=== PATIENT | male | born 1965 | race Caucasian/White ===

== ENCOUNTER 2020-11-24 19:01 | Emergency (ER) | payer BC ==
[2020-11-24] MEDS ORDERED: NA CHLORIDE 0.9% 1,000 ML ONE (22:13)
--- NOTE | 2020-11-24 22:21 | RAD REPORT ---
EXAM DESCRIPTION: RAD - Abdomen 1 View (KUB) - 11/24/2020 10:08 pm CLINICAL HISTORY: Abdomen pain. FINDINGS: The bowel gas pattern is unremarkable. 12 millimeter calcification along the right abdomen the level of L2-3. It may lie within the right ki dney.
[2020-11-24 22:24] LABS: Urine Blood 3+ (Negative); Urine Glucose Negative (Negative); Urine Protein Trace (Negative); Urine Specific Gravity 1.025 (1.005-1.030); Urine pH 5.5 (5.0-7.0)
[2020-11-24 22:36] LABS: Absolute Lymphocytes (CBC) 1.3 K/uL (0.7-4.9); Basophils % 0.3 % (0-1.3); Hematocrit 40.1 % (39.6-49.0); Lymphocytes % 10.7 % (15.3-44.8); MPV 8.1 fL (7.6-11.3); RBC Red Blood Cell Count 4.55 M/uL (4.33-5.43)
[2020-11-24 22:39] LABS: Protime INR 1.25
[2020-11-24 22:41] LABS: Bilirubin Direct 0.1 mg/dL (0-0.2); Bilirubin Total 0.5 mg/dL (0.2-1.0); Potassium 3.9 mmol/L (3.5-5.1); Protein, Total 7.4 g/dL (6.4-8.2)
[2020-11-24 23:35] LABS: Urine Bacteria >50 /HPF (NONE SEEN); Urine Mucus 2+ /HPF (NONE SEEN); Urine RBC 20-50 /HPF (NONE SEEN)
[2020-11-24] MEDS ORDERED: ONDANSETRON 4 MG/2 ML VIAL ONE (23:55)
[2020-11-24] MEDS ORDERED: HYDROMORPHONE HCL 1 MG/ML INJ ONE (23:55)
[2020-11-25] MEDS ORDERED: ONDANSETRON 4 MG/2 ML VIAL ONE (00:03)
[2020-11-25] MEDS ORDERED: HYDROMORPHONE HCL 1 MG/ML INJ ONE ×2 (00:03→03:34)
[2020-11-25] MEDS ORDERED: CIPROFLOXACIN 400mg IV 400 MG/200 ML BAG IV ONE (00:14)
--- NOTE | 2020-11-25 02:57 | ER ---
Nurse's Notes [facility] Name: Zechariah Pollard Age: 55 yrs Sex: Male : 1965 Arrival Date: 11/24/2020 Time: 19:07 Bed 6 Private MD: Diagnosis: Calculus of kidney with calculus of ureter-right;Nausea with vomiting, unspecified Presentation: 11/24 19:12 Chief complaint: Patient states: Pt was in diagnosed with a 12 mm kidney stone on right kg side today in [facility]. They let him go home with the agreement to go to the ER at home to be evaluated . Coronavirus screen: Client denies travel out of the [place] in the last 14 days. At this time, unable to obtain information related to travel outside the [place] At this time, the client does not indicate any symptoms associated with coronavirus-19. Ebola Screen:. Initial Sepsis Screen: Does the patient meet any 2 criteria? No. Patient's initial sepsis screen is negative. Does the patient have a suspected source of infection? No. Patient's initial sepsis screen is negative. Risk Assessment: Do you want to hurt yourself or someone else? Patient reports no desire to harm self or others. Onset of symptoms was November 23, 2020. 19:12 Method Of Arrival: Ambulatory kg 19:12 Acuity: SAV 3 kg Triage Assessment: 19:20 General: Appears in no apparent distress. Behavior is calm, cooperative, appropriate kg for age, quiet. Pain: Complains of pain in right mid back and right low back Pain radiates to Right flank Pain currently is 8 out of 10 on a pain scale. at worst was 10 out of 10 on a pain scale. level that patient reports is acceptable is 5 out of 10 on a pain scale. Quality of pain is described as pressure, Pain began 0700 am. GI: Reports nausea, vomiting. Historical: - Allergies: 19:20 PENICILLINS; kg - PMHx: 19:20 Hypertensive disorder; insomnia; kg - PSHx: 19:20 gastric sleeve; kg - Immunization history:: Adult Immunizations up to date, Client reports having NOT received the Covid vaccine. - Social history:: Smoking status: Patient denies any tobacco usage or history of. Patient uses alcohol, occasionally. Screenin:24 Abuse screen: Denies threats or abuse. Denies injuries from another. Nutritional kg screening: No deficits noted. Tuberculosis screening: No symptoms or risk factors identified. Fall Risk None identified. No fall in past 12 months (0 pts). No secondary diagnosis (0 pts). IV access (20 points). Ambulatory Aid- None/Bed Rest/Nurse Assist (0 pts). Gait- Normal/Bed Rest/Wheelchair (0 pts) Mental Status- Oriented to own ability (0 pts). Total Foley Fall Scale indicates No Risk (0-24 pts). Assessment: 21:30 General: Appears in no apparent distress. uncomfortable, Behavior is calm, cooperative. bb Pain: Complains of pain in right low back Pain currently is 7 out of 10 on a pain scale. Neuro: Level of Consciousness is awake, alert, obeys commands, Oriented to person, place, time, situation. Cardiovascular: Capillary refill < 3 seconds Patient's skin is warm and dry. Respiratory: Airway is patent Respiratory effort is even, unlabored, Respiratory pattern is regular. GI: Abdomen is round Bowel sounds present X 4 quads. Abd is soft X 4 quads. : Reports he was diagnosed with a 12 mm kidney stone today. Derm: Skin is pink, warm \T\ dry. Musculoskeletal: Circulation, motion, and sensation intact. 22:30 Reassessment: Patient and/or family updated on plan of care and expected duration. Pain bb level reassessed. Patient is alert, oriented x 3, equal unlabored respirations, skin warm/dry/pink. 23:30 Reassessment: Patient and/or family updated on plan of care and expected duration. Pain bb level reassessed. Patient is alert, oriented x 3, equal unlabored respirations, skin warm/dry/pink. pt states pain is 7/10, medicated see SADIA, family at bedside. 11/25 01:03 Reassessment: Patient is alert, oriented x 3, equal unlabored respirations, skin bb warm/dry/pink. Patient states feeling better. 03:01 Reassessment: Patient is alert, oriented x 3, equal unlabored respirations, skin bb warm/dry/pink. pt states his pain is getting worse provider notified. 03:28 Reassessment: Patient is alert, oriented x 3, equal unlabored respirations, skin bb warm/dry/pink. pt medicated see JUL. 04:01 Reassessment: report called to [place] [facility]. bb 05:04 Reassessment: Patient is alert, oriented x 3, equal unlabored respirations, skin bb warm/dry/pink. IV site intact patent with fluids infusing. [facility] at bedside for transfer of pt to [place] [facility]. Vital Signs: 11/24 19:12 BP 125 / 69; Pulse 67; Resp 20; Temp 98.6(O); Pulse Ox 97% on R/A; Weight 94.8 kg (M); kg Height 5 ft. 10 in. (177.80 cm); Pain 8/10; 22:30 BP 139 / 85; Pulse 61; Resp 16 S; Pulse Ox 98% on R/A; bb 23:15 BP 124 / 78; Pulse 59; Resp 16 S; Pulse Ox 98% on R/A; bb 11/25 00:05 BP 139 / 93; Pulse 60; Resp 16 S; Pulse Ox 98% ; bb 01:02 BP 111 / 61; Pulse 61; Resp 14 S; Pulse Ox 99% on R/A; bb 02:27 BP 115 / 64; Pulse 65; Resp 14 S; Pulse Ox 97% ; bb 03:28 BP 132 / 79; Pulse 60; Resp 16 S; Temp 98.7(TE); Pulse Ox 100% on R/A; Pain 9/10; bb 05:04 BP 135 / 84; Pulse 63; Resp 14 S; Pulse Ox 96% on R/A; Pain 4/10; bb 11/24 19:12 Body Mass Index 29.99 (94.80 kg, 177.80 cm) kg ED Course: 11/24 19:07 Patient arrived in ED. bp1 19:20 Triage completed. kg 19:24 Patient has correct armband on for positive identification. kg 19:24 Arm band placed on left wrist. kg 21:30 Paul Marrufo PA is PHCP. cp 21:30 John Hernandez MD is Attending Physician. cp 21:47 Rosario Frazier, YARELIS is Primary Nurse. bb 22:00 Initial lab(s) drawn, by me, sent to lab. Urine collected: clean catch specimen, clear. bb Inserted saline lock: 20 gauge in left antecubital area, using aseptic technique. Blood collected. 22:08 XRAY KUB In Process Unspecified. EDMS 23:[address] [facility] with Toyin Sy. Stated she would work on the tt3 request and call back. 23:43 Toyin Sy called back and stated that ALL [facility] [place] [place] [facility], [facility]3 [place], [facility]) were at capacity for ALL beds so the transfer request would be denied. 23:45 Initiated transfer at [facility] with Clive Rosas. Was informed that all of [facility] were on tt3 Med-Surg, Tele, and ICU saturation so the transfer request would be denied. 23:53 Initiated transfer at [facility] with Vani. Stated we could call back once STEVEN Earl, tt3 pt provider was available for consult. 11/25 00:07 No provider procedures requiring assistance completed. Patient transferred, IV remains bb in place. 00:24 Per STEVEN Earl, pt provider, I followed up with [facility] as he was ready for consult. tt3 After connecting him with Eric and her attempting to get their physician, she informed him she would call back once she had them on the phone for consult. Administered Medications: 11/24 22:00 Drug: NS 0.9% 1000 ml Route: IV; Rate: 1 bolus; Site: right antecubital; bb 23:00 Follow up: IV Status: Completed infusion; IV Intake: 1000ml 23:30 Drug: Dilaudid (HYDROmorphone) 1 mg {Note: RASS 0.} Route: IVP; Site: left antecubital; 11/25 01:01 Follow up: Response: No adverse reaction; Pain is decreased; RASS: Alert and Calm (0) 11/24 23:35 Drug: Zofran (Ondansetron) 4 mg Route: IVP; Site: left antecubital; bb 11/25 01:02 Follow up: Response: No adverse reaction 11/24 23:58 Drug: Cipro (ciprofloxacin) 400 mg Volume: 200 ml; Route: IVPB; Infused Over: 60 mins; bb Site: left antecubital; 11/25 01:01 Follow up: IV Status: Completed infusion; IV Intake: 100ml bb 03:27 Drug: Dilaudid (HYDROmorphone) 1 mg {Note: RASS 0.} Route: IVP; Site: left antecubital; bb 04:03 Follow up: Response: No adverse reaction; Pain is decreased; RASS: Drowsy (-1) bb 03:27 Drug: NS 0.9% 1000 ml Route: IV; Rate: 100 ml/hr; Site: left antecubital; bb 05:05 Follow up: IV Status: Order to discontinue infusion; IV Intake: 150ml bb Intake: 11/24 23:00 IV: 1000ml; Total: 1000ml. bb 11/25 01:01 IV: 100ml; Total: 1100ml. bb 05:05 IV: 150ml; Total: 1250ml. bb Outcome: 00:07 Instructed on the need for transfer. bb 02:57 ER care complete, transfer ordered by MD. cp 03:29 Condition: stable bb 05:05 Transferred by ground EMS Transfer form completed. X-rays sent w/ patient. bb 05:05 Patient left the ED. bb Signatures: Dispatcher [employer] Rosario Conroy RN RN bb Paul Marrufo PA PA cp [place], Brittany [facility] tt3 Sylwia Bagley RN RN kg
--- NOTE | 2020-11-25 02:57 | EDPHYS ---
Physician Documentation [facility] Name: Zechariah Pollard Age: 55 yrs Sex: Male : 1965 Arrival Date: 11/24/2020 Time: 19:07 Bed 6 Private MD: ED Physician John Hernandez HPI: 11/24 21:45 This 55 yrs old Male presents to ER via Ambulatory with complaints of cp Abdominal Pain, Kidney Stone. 21:45 Patient presents to the emergency department with increasing right flank pain. Patient cp reports pain started suddenly this morning around 7:00. Patient reports he was on vacation in [place] where he went to the local emergency department to be evaluated for his right flank pain. Patient reports he had a CAT scan that showed he had a 12mm right kidney stone. Patient reports he was released from the [place] emergency department. Patient reports he was instructed to follow-up once he returned home. Patient reports increasing right flank pain, nausea vomiting, inability to keep any fluids down.. Historical: - Allergies: 19:20 PENICILLINS; kg - PMHx: 19:20 Hypertensive disorder; insomnia; kg - PSHx: 19:20 gastric sleeve; kg - Immunization history:: Adult Immunizations up to date, Client reports having NOT received the Covid vaccine. - Social history:: Smoking status: Patient denies any tobacco usage or history of. Patient uses alcohol, occasionally. ROS: 21:50 Constitutional: Positive for poor PO intake, Negative for body aches, chills, fever. cp 21:50 Eyes: Negative for injury, pain, redness, and discharge. cp 21:50 ENT: Negative for drainage from ear(s), ear pain, sore throat, difficulty swallowing, difficulty handling secretions. 21:50 Cardiovascular: Negative for chest pain, edema, palpitations. 21:50 Respiratory: Negative for cough, shortness of breath, wheezing. 21:50 Abdomen/GI: Positive for abdominal pain, nausea and vomiting, Negative for diarrhea, constipation, hematemesis. 21:50 Back: Positive for flank pain, on the right. 21:50 : Negative for urinary symptoms, testicular pain 21:50 Neuro: Negative for altered mental status, headache, weakness. 21:50 All other systems are negative. Exam: 21:55 Constitutional: The patient appears in no acute distress, alert, awake, cp non-diaphoretic, non-toxic, well developed, well nourished, uncomfortable. 21:55 Head/Face: Normocephalic, atraumatic. cp 21:55 Eyes: Periorbital structures: appear normal, Conjunctiva: normal, no exudate, no injection, Sclera: no appreciated abnormality, Lids and lashes: appear normal, bilaterally. 21:55 ENT: External ear(s): are unremarkable, Nose: is normal, Mouth: Lips: moist, Oral mucosa: moist, Posterior pharynx: Airway: no evidence of obstruction, patent. 21:55 Chest/axilla: Inspection: normal, Palpation: is normal, no crepitus, no tenderness. 21:55 Cardiovascular: Rate: normal, Rhythm: regular, Edema: is not appreciated, JVD: is not appreciated. 21:55 Respiratory: the patient does not display signs of respiratory distress, Respirations: normal, no use of accessory muscles, no retractions, labored breathing, is not present, Breath sounds: are clear throughout, no decreased breath sounds, no stridor, no wheezing. 21:55 Abdomen/GI: Inspection: abdomen appears normal, Bowel sounds: active, all quadrants, Palpation: soft, in all quadrants, severe abdominal tenderness, in the anterior aspect of right lateral abdomen and posterior aspect of right lateral abdomen, rebound tenderness, is not appreciated, voluntary guarding, is elicited in the anterior aspect of right lateral abdomen and posterior aspect of right lateral abdomen. 21:55 Skin: no rash present. 21:55 Neuro: Orientation: to person, place \T\ time. Mentation: is normal, Motor: moves all fours, strength is normal. Vital Signs: 19:12 BP 125 / 69; Pulse 67; Resp 20; Temp 98.6(O); Pulse Ox 97% on R/A; Weight 94.8 kg (M); kg Height 5 ft. 10 in. (177.80 cm); Pain 8/10; 22:30 BP 139 / 85; Pulse 61; Resp 16 S; Pulse Ox 98% on R/A; bb 23:15 BP 124 / 78; Pulse 59; Resp 16 S; Pulse Ox 98% on R/A; bb 11/25 00:05 BP 139 / 93; Pulse 60; Resp 16 S; Pulse Ox 98% ; bb 01:02 BP 111 / 61; Pulse 61; Resp 14 S; Pulse Ox 99% on R/A; bb 02:27 BP 115 / 64; Pulse 65; Resp 14 S; Pulse Ox 97% ; bb 03:28 BP 132 / 79; Pulse 60; Resp 16 S; Temp 98.7(TE); Pulse Ox 100% on R/A; Pain 9/10; bb 05:04 BP 135 / 84; Pulse 63; Resp 14 S; Pulse Ox 96% on R/A; Pain 4/10; bb 11/24 19:12 Body Mass Index 29.99 (94.80 kg, 177.80 cm) kg MDM: 11/24 21:33 Patient medically screened. cp 22:00 Differential diagnosis: nephrolithiasis, pyelonephritis, UTI, diverticulitis, sepsis. 11/25 02:55 Data reviewed: vital signs, nurses notes, lab test result(s), radiologic studies, plain cp films, I have discussed the patient's presentation/case with the attending Emergency Department Physician;. 02:55 Counseling: I had a detailed discussion with the patient and/or guardian regarding: the cp historical points, exam findings, and any diagnostic results supporting the discharge/admit diagnosis, lab results, radiology results, the need to transfer to another facility, [facility] does not immediately have the required specialist. Response to treatment: the patient's symptoms have mildly improved after treatment. Physician consultation: was contacted at 02:55, regarding regarding transfer, [facility], accepting physician will be DR Gordon Quevedo to the ED patient's condition. 11/24 21:30 Order name: Urine Microscopic Only; Complete Time: 23:39 cp 11/24 23:39 Interpretation: Normal except: UWBC 5-10; URBC 20-50; UBACT >50. cp 11/24 21:42 Order name: Basic Metabolic Panel; Complete Time: 22:53 cp 11/24 22:53 Interpretation: Normal except: CL 109; GFR 73. cp 11/24 21:42 Order name: CBC with Diff; Complete Time: 22:53 cp 11/24 22:53 Interpretation: Normal except: WBC 12.20; TUSHAR% 79.7; LYM% 10.7; NEUT A 9.8. cp 11/24 21:42 Order name: Hepatic Function; Complete Time: 22:53 11/24 22:54 Interpretation: Reviewed. 11/24 21:42 Order name: Lipase; Complete Time: 22:53 11/25 02:54 Interpretation: LIP 64; Reviewed. 11/24 21:42 Order name: PT-INR; Complete Time: 22:53 11/24 22:54 Interpretation: Abnormal: PT 14.4. 11/24 21:42 Order name: Ptt, Activated; Complete Time: 22:53 11/24 21:43 Order name: XRAY KUB; Complete Time: 22:30 11/24 22:30 Interpretation: Report reviewed. 11/24 22:24 Order name: Urine Dipstick-Ancillary; Complete Time: 22:30 [facility] 11/24 22:30 Interpretation: Normal except: UKET 1+; UBLD 3+; UPROT Trace. 11/24 23:36 Order name: Urine Culture [facility] 11/25 01:44 Order name: SARS-COV-2 RT PCR; Complete Time: 02:51 [facility] 11/24 21:30 Order name: Urine Dipstick-Ancillary (obtain specimen); Complete Time: 22:25 11/24 21:42 Order name: IV Saline Lock; Complete Time: 22:25 11/24 21:42 Order name: Labs collected and sent; Complete Time: 22:25 11/24 22:25 Order name: NPO; Complete Time: 23:37 cp Administered Medications: 11/24 22:00 Drug: NS 0.9% 1000 ml Route: IV; Rate: 1 bolus; Site: right antecubital; 23:00 Follow up: IV Status: Completed infusion; IV Intake: 1000ml 23:30 Drug: Dilaudid (HYDROmorphone) 1 mg {Note: RASS 0.} Route: IVP; Site: left antecubital; 11/25 01:01 Follow up: Response: No adverse reaction; Pain is decreased; RASS: Alert and Calm (0) 11/24 23:35 Drug: Zofran (Ondansetron) 4 mg Route: IVP; Site: left antecubital; 11/25 01:02 Follow up: Response: No adverse reaction 11/24 23:58 Drug: Cipro (ciprofloxacin) 400 mg Volume: 200 ml; Route: IVPB; Infused Over: 60 mins; bb Site: left antecubital; 11/25 01:01 Follow up: IV Status: Completed infusion; IV Intake: 100ml bb 03:27 Drug: Dilaudid (HYDROmorphone) 1 mg {Note: RASS 0.} Route: IVP; Site: left antecubital; bb 04:03 Follow up: Response: No adverse reaction; Pain is decreased; RASS: Drowsy (-1) bb 03:27 Drug: NS 0.9% 1000 ml Route: IV; Rate: 100 ml/hr; Site: left antecubital; bb 05:05 Follow up: IV Status: Order to discontinue infusion; IV Intake: 150ml bb Disposition: 05:59 Co-signature as Attending Physician, John Hernandez MD. [email or web address] Disposition Summary: 11/25/20 02:57 Transfer Ordered Transfer Location: Other Acute Care Facility cp Reason: Higher level of care cp Condition: Stable cp Problem: new cp Symptoms: have improved cp Accepting Physician: Doctor(11/25/20 05:05) nico Diagnosis - Calculus of kidney with calculus of ureter - right cp - Nausea with vomiting, unspecified cp Forms: - Medication Reconciliation Form cp - SBAR form cp Signatures: Dispatcher [employer] EDMT Rosario Frazier RN RN bb Paul Marrufo PA PA cp Holmes, Maurice, MD MD 7 Sylwia Bagley RN RN kg Corrections: (The following items were deleted from the chart) 00:45 11/24 23:36 CORONAVIRUS+LAB.BRZ ordered. [facility] 11/25 03:13 11/24 21:45 Patient presents to the emergency department with increasing right flank cp pain. Patient reports pain started suddenly this morning around 7:00. Patient reports she was on vacation in [place] where he went to the local emergency department to be evaluated for his right flank pain. Patient reports he had a CAT scan that showed he had a 12mm right kidney stone. Patient reports she was released from the [place] emergency department. Patient reports she was instructed to follow-up once she returned home. Patient reports increasing right flank pain nausea vomiting inability to keep any fluids down.. cp 11/25 05:05 02:57 Doctor cp nico
[2020-11-25] MEDS ORDERED: NA CHLORIDE 0.9% 1,000 ML ONE (03:34)
[2020-11-25 05:25] VITALS: TEMP 98.7
[2020-11-25 05:26] VITALS: BP 135/84; O2SAT 96
== END 2020-11-25 05:05 ==
LOC: ER 19:01
DX: N20.2 Calculus of kidney with calculus of ureter (principal); R11.2 Nausea with vomiting, unspecified; I10 Essential (primary) hypertension; Z20.822 Contact with and (suspected) exposure to COVID-19; Z88.0 Allergy status to penicillin
CPT/HCPCS: 96365; 96361; 87088; 85025; 87086; 80048; 36415; 85610; 80076; 85730; 83690; 74018; 96375; 99285; U0003; J1170; J7030 ×2; J2405; 81003; 81015